=== PATIENT | female | born 1955 | race Hispanic/Latino ===

== ENCOUNTER 2022-01-06 12:02 | Emergency (ER) | payer MEDICARE ==
[~2022-01-06] VITALS: Ht 160 cm; Wt 56.2 kg
[2022-01-06 13:34] LABS: BASOPHILS # (AUTO) 0.2 (0.0-0.1); BASOPHILS % 1.3 % (0.0-1.0); EOSINOPHILS # (AUTO) 0.9 (0.0-0.4); EOSINOPHILS % 5.6 % (0.0-6.0); HEMATOCRIT 33.3 % (34.2-44.1); HEMOGLOBIN 12.2 g/dL (12.0-16.0); LYMPHOCYTES # (AUTO) 3.1 (1.0-3.2); LYMPHOCYTES % 19.9 % (18.0-39.1); MEAN CORPUSCULAR HEMOGLOBIN 31.8 pg (28-32); MEAN CORPUSCULAR HGB CONC 36.6 g/dL (31-35); MEAN CORPUSCULAR VOLUME 86.7 fL (81-99); MONOCYTES # (AUTO) 1.7 (0.2-0.8); MONOCYTES % 10.8 % (4.4-11.3); NEUTROPHILS # (AUTO) 9.6 (2.1-6.9); NEUTROPHILS % 61.7 % (38.7-80.0); PLATELET COUNT 407 x10e3/uL (140-360); RED BLOOD COUNT 3.84 x10e6/uL (3.6-5.1); RED CELL DISTRIBUTION WIDTH 22.2 % (11.7-14.4)
[2022-01-06 13:42] LABS: INR 1.21; PROTHROMBIN TIME 16.4 seconds (11.9-14.5)
[2022-01-06 13:44] LABS: PARTIAL THROMBOPLASTIN TIME 43.5 seconds (23.8-35.5)
[2022-01-06 13:59] LABS: ALBUMIN 2.3 g/dL (3.5-5.0); ALBUMIN/GLOBULIN RATIO 0.5 (0.8-2.0); ANION GAP 14.4 mmol/L (8-16); CALCIUM 8.6 mg/dL (8.4-10.2); CREATININE, SERUM 1.03 mg/dL (0.57-1.11); POTASSIUM 4.4 mmol/L (3.5-5.1)
[2022-01-06 14:01] LABS: BILIRUBIN,DIRECT 11.8 mg/dL (0.0-0.5)
[2022-01-06 14:06] LABS: CREATINE KINASE MB 1.4 ng/mL (0-5.0)
[2022-01-06] MEDS ORDERED: MEROPENEM 1 GM in SODIUM CHLORIDE 0.9% 100 ML IV ONE (15:45)
[2022-01-06 16:30] LABS: CLARITY,URINE SL CLOUDY (CLEAR); COLOR,URINE BROWN (YELLOW); KETONES,URINE NEGATIVE (NEGATIVE); LEUKOCYTE ESTERASE ,URINE NEGATIVE (NEGATIVE); NITRITE,URINE NEGATIVE (NEGATIVE); PROTEIN,URINE DIPSTICK 1+ (NEGATIVE); URINE UROBILINOGEN 1 mg/dL (0.2 - 1)
[2022-01-06 16:42] LABS: WBC,URINE (MAN) 0-5 /HPF (0-5)
[2022-01-06 16:43] LABS: AMORPHOUS SEDIMENT,URINE FEW (FEW); BACTERIA,URINE FEW /HPF; CALCIUM OXALATE CRYSTALS,UR FEW (FEW); EPITHELIAL CELLS,URINE FEW /LPF
== END 2022-01-06 19:44 | disposition other institution (70) ==
LOC: ER 12:09
DX: K83.1 Obstruction of bile duct (principal); Z94.4 Liver transplant status; Z20.822 Contact with and (suspected) exposure to COVID-19; R94.31 Abnormal electrocardiogram [ECG] [EKG]; Z85.43 Personal history of malignant neoplasm of ovary
CPT/HCPCS: 0223U; 36415; 71045; 74177; 80053; 81001; 82248; 82550; 82553; 84484; 85025; 85610; 85730; 87040; 87086; 93005; 99284; J2185; J7050